=== PATIENT | female | born 1990 | race American Indian/Alaskan Native ===

== ENCOUNTER 2019-06-05 14:54 | Emergency (ER) | payer OTHER ==
--- NOTE | 2019-06-05 15:21 | Cat Scan Report ---
NONENHANCED CT SCAN OF THE BRAIN: INDICATION: neuro deficits <6hrs or sx present upon awakening. TECHNIQUE: Routine CT head without contrast. Sagittal and coronal reformatted images were obtained. A ll CT scans at this location are performed using CT dose reduction for ALARA by means of automated ex posure control. COMPARISON: None. FINDINGS: BRAIN / INTRACRANIAL CONTENTS: Hemorrhage:No intracranial hemorrhage; no subarachnoid hemorrhage Stroke mimics: No subdural or epidural hematoma or space taking lesion Acute/subacute territorial infarction: Murray-white matter interface: Normal Wedge shaped parenchymal low density area: Not present Cortical sulci: Not effaced Lacunar infarctions: Not present Vasculopathy: No evidence Calcified embolus: Not present Chronic lesions:None White matter: Normal Craniocervical junction:No significant abnormality Orbits:No significant abnormality Paranasal sinuses/mastoids:No significant abnormality Additional findings: None IMPRESSION: No hemorrhage or hemorrhagic lesion No stroke mimics No acute parenchymal lesion in the brain This exam was performed as part of a code stroke protocol. The exam was completed on 06/05/2019 2:09 PM. The exam was reviewed at 2:[address] Vitale was notified at 2:16 PM. Signer Name: Ced Hopper MD Signed: 06/05/2019 3:17 PM Workstation Name: [email or web address]
[2019-06-05] MEDS ORDERED: LIDOCAINE (4%) 40 MG/ML TOPICAL SOLN 50 ML BOTTLE TP ONE (15:31)
[2019-06-05] MEDS ORDERED: diphenhydrAMINE 50 MG/ML VIAL IV ONE (15:31)
[2019-06-05] MEDS ORDERED: MAGNESIUM SULFATE 2 GM/50 ML BAG IV ONE (15:31)
[2019-06-05] MEDS ORDERED: METOCLOPRAMIDE 10 MG/2 ML INJ IV ONE (15:31)
[2019-06-05] MEDS ORDERED: fentaNYL 100 MCG/2 ML INJ IV ONE (15:31)
[2019-06-05] MEDS ORDERED: SODIUM CHLORIDE 0.9% 500 ML 500 ML IV ONE (15:31)
[2019-06-05] MEDS ORDERED: methylPREDNISolone Sod Succinate 125 MG/2 ML INJ IV ONE (15:32)
--- NOTE | 2019-06-05 15:33 | Emergency Department Report ---
ED Neuro Deficit HPI - General Chief Complaint: Neuro Symptoms/Deficit Stated Complaint: POSS STROKE Time Seen by Provider: 06/05/19 15:14 Source: patient, RN notes reviewed Mode of arrival: Ambulatory Limitations: No Limitations - History of Present Illness Initial Comments: Primary care : [place] [facility] Past medical history: Patient reports DVT, pulmonary embolism, upper extremity DVT The patient states she is not currently on systemic anticoagulation and reports that she had a total abdominal hysterectomy. She further reports that in the [place] [facility], it was felt that her pulmonary emboli/DVT or related to "hormonal" disorders, and she indicates that her physicians did not feel it was necessary to maintain her on anticoagulation after her hysterectomy. She also reports a history of chronic headaches, and bipolar The patient presents to the ER with a complaint of headache. The headache is midline and occipital. The headache was present upon waking up at 9:30 this morning. The headache is not described as sudden or thunderclap in nature. The headache did not which maximal intensity within an hour. The headache is waxing and waning, and reached peak intensity at approximately 12:00 PM today. She also reports that at or around 12:00 PM, she developed dizziness, described as unsteady gait, binocular blurry vision, now resolved, numbness over her bilateral lips, and left arm and leg "pins and needles." She reports a history of chronic headaches, but states this is dissimilar from prior headaches. She also believes that she is drooling. -: Gradual Location: left face, left arm, left leg, other Presenting Symptoms: Present: Weak/Paralyzed One Side, Blurred/Loss of Vision, Facial Droop/Numbness History of same: No Place: home Quality: other Improves With: other Worsens With: other On Anticoagulants: No Context: other - Related Data Home Medications: Home Medications Medication Instructions Recorded Confirmed Last Taken Ciclesonide [Alvesco 160MCG/PUFF] 1 puff IH BID 06/05/19 06/05/19 Unknown Citalopram Hydrobromide [Celexa] 40 mg PO DAILY 06/05/19 06/05/19 Unknown OLANzapine [ZyPREXA] 5 mg PO QHS 06/05/19 06/05/19 Unknown Pioglitazone [Actos] 15 mg PO QDAY 06/05/19 06/05/19 Unknown Prazosin HCl 4 mg PO QHS 06/05/19 06/05/19 Unknown hydrOXYzine PAMOATE [Vistaril] 25 mg PO Q6HR PRN 06/05/19 06/05/19 Unknown lamoTRIgine [LaMICtal] 100 mg PO QHS 06/05/19 06/05/19 Unknown metFORMIN [Glucophage] 500 mg PO BID 06/05/19 06/05/19 Unknown Allergies/Adverse Reactions: Allergies Allergy/AdvReac Type Severity Reaction Status Date / Time aspirin Allergy Unknown Verified 06/05/19 15:57 erythromycin base Allergy Unknown Verified 06/05/19 15:57 Sulfa (Sulfonamide Allergy Unknown Verified 06/05/19 15:57 Antibiotics) ED Review of Systems ROS: Stated complaint: POSS STROKE Other details as noted in HPI Constitutional: malaise, weakness Eyes: vision change Respiratory: denies: wheezing Cardiovascular: denies: syncope Gastrointestinal: denies: vomiting Neurological: headache, weakness, numbness Psychiatric: anxiety Hematological/Lymphatic: denies: easy bleeding ED Past Medical Hx - Past Medical History Previous Medical History?: Yes Hx Pulmonary Embolism: Yes - Surgical History Past Surgical History?: No - Medications Home Medications: Home Medications Medication Instructions Recorded Confirmed Last Taken Type Ciclesonide [Alvesco 160MCG/PUFF] 1 puff IH BID 06/05/19 06/05/19 Unknown History Citalopram Hydrobromide [Celexa] 40 mg PO DAILY 06/05/19 06/05/19 Unknown History OLANzapine [ZyPREXA] 5 mg PO QHS 06/05/19 06/05/19 Unknown History Pioglitazone [Actos] 15 mg PO QDAY 06/05/19 06/05/19 Unknown History Prazosin HCl 4 mg PO QHS 06/05/19 06/05/19 Unknown History hydrOXYzine PAMOATE [Vistaril] 25 mg PO Q6HR PRN 06/05/19 06/05/19 Unknown History lamoTRIgine [LaMICtal] 100 mg PO QHS 06/05/19 06/05/19 Unknown History metFORMIN [Glucophage] 500 mg PO BID 06/05/19 06/05/19 Unknown History ED Neuro Physical Exam - General Limitations: No Limitations General appearance: alert, anxious, obese Suspected Stroke: No - Head Head exam: Present: atraumatic, normocephalic - Eye Eye exam: Present: normal appearance, PERRL, EOMI, other (visual acuity intact to finger counting, color perception, reading at a close distance). Absent: nystagmus - ENT ENT exam: Present: normal exam, normal orophraynx, mucous membranes moist, normal external ear exam - Neck Neck exam: Present: normal inspection, full ROM. Absent: tenderness, meningismu s - Respiratory Respiratory exam: Present: normal lung sounds bilaterally. Absent: respiratory distress - Cardiovascular Cardiovascular Exam: Present: regular rate, normal rhythm, normal heart sounds. Absent: bradycardia, tachycardia, irregular rhythm, systolic murmur, diastolic murmur, rubs, gallop - GI/Abdominal GI/Abdominal exam: Present: soft. Absent: distended, tenderness, guarding, rebound, rigid - Extremities Exam Extremities exam: Present: normal inspection, full ROM, other (2+ pulses noted in the bilateral upper, lower extremities. There is no long bone tenderness. Musculoskeletal compartments are soft. The pelvis is stable.). Absent: tenderness, pedal edema, joint swelling, calf tenderness - Back Exam Back exam: Present: normal inspection, full ROM. Absent: tenderness, CVA ten derness (R), CVA tenderness (L), paraspinal tenderness, vertebral tenderness - Neurological Exam Neurological exam: Present: alert, oriented X3 - NIHSS Assessment Interval: Baseline 1a. Level of Consciousness: alert/keenly responsive 1b. LOC Questions: answers both correctly 1c. LOC Commands: performs tasks correctly 2. Best Gaze: normal 3. Visual: no visual loss 4. Facial Palsy: normal symmetrical movement 5b. Motor Arm Right: no drift 5a. Motor Arm Left: no drift (the patient's left arm does not drift, she holds it up for 10 seconds, however, it is noted to be tremulous.) 6a. Motor Leg Left: no drift (the left leg does not drift, there is strenuous is, however, she holds it up equally with a left upper extremity) 6b. Motor Leg Right: no drift 7. Limb Ataxia: present 1 limb (patient had difficulty with left upper extremity. However, this is intermittent, and she is found to be coordinating her left upper extremities without difficulty on other examinations) 8. Sensory: mild/moderate sensory loss (reports pins and needles to left arm and left leg) 9. Best Language: no aphasia 10. Dysarthria: normal 11. Extinction/Inattention: no abnormality Total Score: 2 Stroke Severity: Minor Stroke - Psychiatric Psychiatric exam: Present: anxious - Skin Skin exam: Present: warm, dry, intact, normal color. Absent: rash ED Course Vital Signs 06/05/19 06/05/19 06/05/19 15:26 16:00 17:00 Temperature 98.1 F Pulse Rate 85 94 H 90 Respiratory 19 17 23 Rate Blood Pressure 120/84 116/68 116/73 O2 Sat by Pulse 99 100 97 Oximetry - Reevaluation(s) Reevaluation #1: 06/05/19 16:36 Differential diagnosis, including not limited to: Complex migraine, stroke, TIA, partial seizure, conversion disorder Assessment and plan: 28-year-old female with multiple neurologic complaints, inconsistent examination, woke up with a headache, with minor NIH deficits. The patient does not want TPA as she is concerned about the risks of fatal bleed. She is alert and oriented at this time, clinically sober and exhibits decision-making capacity. In addition, both myself and consulting stroke neurology, Dr. Angel, had a very low suspicion for true ischemic event. Patient is noted by myself and nursing staff to have intermittent drooling and and swallowing without difficulty. She was noted by consulting neurology to have held up her arm without difficulty while distracted. She will be treated for presumed complex migraine. Stroke neurology does recommend inpatient admission for dedicated MR acquisition and further screening studies. CTA head and neck were obtained, however, we think this is unlikely to be a large vessel occlusion. We obtained a CTA head and neck as the patient complains of left-sided neck pain, nontraumatic, and is endorsing new onsets reported neurologic deficits. Reevaluation #2: 06/05/19 16:40 As per nursing documentation: 1545: Upon transporting patient to CT, pt noted to be intermittently drooling out of left side of mouth but wiping to clean herself. 1610: While administering medications and conversating with patient and , patient noted to not have any drooling while speaking. Reevaluation #3: 06/05/19 16:54 CT angiogram head and neck negative for acute disease Reevaluation #4: 06/05/19 18:[address] Alexander Back - Lab Data Result diagrams: 06/05/19 15:25 06/05/19 15:25 Lab Results 06/05/19 06/05/19 06/05/19 Range/Units 15:25 15:25 15:25 WBC 6.5 (4.5-11.0) K/mm3 RBC 5.05 H (3.65-5.03) M/mm3 Hgb 14.3 (10.1-14.3) gm/dl Hct 42.2 (30.3-42.9) % MCV 84 (79-97) fl MCH 28 (28-32) pg MCHC 34 (30-34) % RDW 14.4 (13.2-15.2) % Plt Count 238 (140-440) K/mm3 Lymph % (Auto) 35.5 H (13.4-35.0) % Calloway % (Auto) 5.7 (0.0-7.3) % Eos % (Auto) 2.1 (0.0-4.3) % Baso % (Auto) 0.8 (0.0-1.8) % Lymph # 2.3 (1.2-5.4) K/mm3 Calloway # 0.4 (0.0-0.8) K/mm3 Eos # 0.1 (0.0-0.4) K/mm3 Baso # 0.1 (0.0-0.1) K/mm3 Seg Neutrophils % 55.9 (40.0-70.0) % Seg Neutrophils # 3.6 (1.8-7.7) K/mm3 PT 12.9 (12.2-14.9) Sec. INR 0.98 (0.87-1.13) APTT 28.9 (24.2-36.6) Sec. Thrombin Time (15.1-19.6) Sec. Sodium 140 (137-145) mmol/L Potassium 3.7 (3.6-5.0) mmol/L Chloride 102.9 (98-107) mmol/L Carbon Dioxide 26 (22-30) mmol/L Anion Gap 15 mmol/L BUN 10 (7-17) mg/dL Creatinine 0.7 (0.7-1.2) mg/dL Estimated GFR > 60 ml/min BUN/Creatinine Ratio 14 % Glucose 105 H (65-100) mg/dL Calcium 9.6 (8.4-10.2) mg/dL Troponin T < 0.010 (0.00-0.029) ng/mL 06/05/19 Range/Units 15:25 WBC (4.5-11.0) K/mm3 RBC (3.65-5.03) M/mm3 Hgb (10.1-14.3) gm/dl Hct (30.3-42.9) % MCV (79-97) fl MCH (28-32) pg MCHC (30-34) % RDW (13.2-15.2) % Plt Count (140-440) K/mm3 Lymph % (Auto) (13.4-35.0) % Calloway % (Auto) (0.0-7.3) % Eos % (Auto) (0.0-4.3) % Baso % (Auto) (0.0-1.8) % Lymph # (1.2-5.4) K/mm3 Calloway # (0.0-0.8) K/mm3 Eos # (0.0-0.4) K/mm3 Baso # (0.0-0.1) K/mm3 Seg Neutrophils % (40.0-70.0) % Seg Neutrophils # (1.8-7.7) K/mm3 PT (12.2-14.9) Sec. INR (0.87-1.13) APTT (24.2-36.6) Sec. Thrombin Time 16.7 (15.1-19.6) Sec. Sodium (137-145) mmol/L Potassium (3.6-5.0) mmol/L Chloride (98-107) mmol/L Carbon Dioxide (22-30) mmol/L Anion Gap mmol/L BUN (7-17) mg/dL Creatinine (0.7-1.2) mg/dL Estimated GFR ml/min BUN/Creatinine Ratio % Glucose (65-100) mg/dL Calcium (8.4-10.2) mg/dL Troponin T (0.00-0.029) ng/mL - EKG Data -: EKG Interpreted by Co EKG shows normal: sinus rhythm, axis, intervals, QRS complexes, ST-T waves When compared to previous EKG there are: previous EKG unavailable - Radiology Data Radiology results: report reviewed, image reviewed Noncontrast CT scan of the brain is negative for acute disease - Core Measures Measure Exclusions: not indicated - Thrombolytic Inclusion/Exclusion Thrombolytic Exclusion Criteria: Symptom Onset > 3 Hours (patient states she woke up with headache) Thrombolytic Contraindications: Rapidily Improving s/s Critical care attestation.: If time is entered above; I have spent that time in minutes in the direct care of this critically ill patient, excluding procedure time. ED Disposition Clinical Impression: TIA (transient ischemic attack) Disposition: DC/TX- [facility] IP Is pt being admited?: No Condition: Good
[2019-06-05 15:34] LABS: Basophils # (Auto) 0.1 K/mm3 (0.0-0.1); Basophils % (Auto) 0.8 % (0.0-1.8); Eosinophils # (Auto) 0.1 K/mm3 (0.0-0.4); Eosinophils % (Auto) 2.1 % (0.0-4.3); Hematocrit 42.2 % (30.3-42.9); Hemoglobin 14.3 gm/dl (10.1-14.3); Lymphocytes # (Auto) 2.3 K/mm3 (1.2-5.4); Lymphocytes % (Auto) 35.5 % (13.4-35.0); Mean Corpuscular HGB Conc 34 % (30-34); Mean Corpuscular Volume 84 fl (79-97); Monocytes # (Auto) 0.4 K/mm3 (0.0-0.8); Monocytes % (Auto) 5.7 % (0.0-7.3); Platelet Count 238 K/mm3 (140-440); Red Blood Count 5.05 M/mm3 (3.65-5.03); Red Cell Distribution Width 14.4 % (13.2-15.2)
[2019-06-05 15:48] LABS: INR 0.98 (0.87-1.13)
[2019-06-05 15:49] LABS: Partial Thromboplastin Time 28.9 Sec. (24.2-36.6)
[2019-06-05 16:12] LABS: BUN/Creatinine Ratio 14; Blood Urea Nitrogen 10 mg/dL (7-17); Calcium 9.6 mg/dL (8.4-10.2); Hemolysis Index 6
--- NOTE | 2019-06-05 16:38 | Cat Scan Report ---
CTA neck with and without contrast CLINICAL HISTORY: Cerebrovascular accident, left neck pain. Technique: Multiple contiguous postcontrast axial CT images of the neck were obtained at 1.25 mm inte rvals. 3 plane MIP reconstructions were produced. Precontrast localizing images were also performed. All CT scans at this location are performed using the CT dose reduction for ALARA by means of automat ed exposure control. FINDINGS: There is no significant stenosis involving the carotid arteries by NASCET criteria. Segment s of the proximal right vertebral artery is obscured by the dense contrast within the adjacent venous structures appeared however, the visualized segments demonstrate appropriate caliber without focal n arrowing. Furthermore, the vessel luis including the carotid and vertebral arteries demonstrate fair ly smooth contours without clear CT evidence of dissection. There is some beam hardening resulting fr om the patient's body habitus. The arch of vessels are unremarkable. There is a 1.8 cm heterogeneous lesion within the inferior left lobe of thyroid gland which is nonspe cific. IMPRESSION: There is no significant stenosis involving the carotid or vertebral arteries by NASCET criteria. There is a 1.8 cm heterogeneous lesion within the inferior left lobe of the thyroid gland as detailed above. Follow-up thyroid ultrasound would be recommended to further characterize this finding. Signer Name: Clemente Jane MD Signed: 06/05/2019 4:33 PM Workstation Name: [id number]
--- NOTE | 2019-06-05 16:42 | Cat Scan Report ---
CTA head with and without IV contrast. CLINICAL HISTORY: Cerebrovascular accident. Technique: Multiple contiguous postcontrast CT images of the head were obtained at 1.25 mm intervals. 3 plane MIP reconstructions were obtained. Precontrast localizing images were also performed. CT scan s at this location are performed using the CT dose reduction for Zipzoom by means of automated exposure control. FINDINGS: The intracranial vessels appear to demonstrate appropriate caliber without significant foca l stenosis by NASCET criteria. The vertebral basilar system is unremarkable. There is no clear CTA ev idence of intracranial aneurysm on these 1.25 mm images of the dural venous sinuses opacify with cont rast. IMPRESSION: There is no CTA evidence of significant stenosis involving the intracranial vessels. Signer Name: Clemente Jane MD Signed: 06/05/2019 4:37 PM Workstation Name: [id number]
--- NOTE | 2019-06-05 17:04 | Emergency Department Report ---
HPI - General Chief Complaint: Neuro Symptoms/Deficit Time Seen by Provider: 06/05/19 15:14 - HPI HPI: [facility] Date of Service: 06/05/2019 14:58:52 Metrics: Last Known Well: 06/05/2019 12:00:00 [employer] Notification Time: 06/05/2019 14:58:15 Arrival Time: 06/05/2019 14:54:00 Stamp Time: 06/05/2019 14:58:52 Time First Login Attempt: 06/05/2019 14:58:00 Video Start Time: 06/05/2019 15:08:00 Symptoms: Headache and left sided numbness NIHSS Start Assessment Time: 06/05/2019 15:10:00 Patient is not a candidate for tPA. Patient was not deemed candidate for tPA thrombolytics because of D/t non disabling paresthesia and patient's preference for medical work up instead.. Video End Time: 06/05/2019 15:18:00 Patient is a 28 year old Female. Patient was brought by private transportation with symptoms of Headache and left sided numbness Patient with 20 year hx of migraine presents with intense posteior headache since she woke up with tingling of her left face and arm since 12 pm. She felt the left arm is heavy and that the tingling is somewhat intense. She has hx of dvt/pe and has been off a/c for past two years since hysterectomy. She states today she had some blurred vision and fell as well but not having vision complaints at this time. CT head showed no acute hemorrhage or acute core infarct. CT head was reviewed. ED Past Medical Hx - Past Medical History Previous Medical History?: Yes Hx Pulmonary Embolism: Yes - Surgical History Past Surgical History?: No - Social History Smoking Status: Never Smoker Substance Use Type: None - Medications Home Medications: Home Medications Medication Instructions Recorded Confirmed Last Taken Type Ciclesonide [Alvesco 160MCG/PUFF] 1 puff IH BID 06/05/19 06/05/19 Unknown History Citalopram Hydrobromide [Celexa] 40 mg PO DAILY 06/05/19 06/05/19 Unknown History OLANzapine [ZyPREXA] 5 mg PO QHS 06/05/19 06/05/19 Unknown History Pioglitazone [Actos] 15 mg PO QDAY 06/05/19 06/05/19 Unknown History Prazosin HCl 4 mg PO QHS 06/05/19 06/05/19 Unknown History hydrOXYzine PAMOATE [Vistaril] 25 mg PO Q6HR PRN 06/05/19 06/05/19 Unknown History lamoTRIgine [LaMICtal] 100 mg PO QHS 06/05/19 06/05/19 Unknown History metFORMIN [Glucophage] 500 mg PO BID 06/05/19 06/05/19 Unknown History ED Review of Systems ROS: Stated complaint: POSS STROKE Other details as noted in HPI Constitutional: malaise, weakness Eyes: vision change Respiratory: denies: wheezing Cardiovascular: denies: syncope Gastrointestinal: denies: vomiting Neurological: headache, weakness, numbness Psychiatric: anxiety Hematological/Lymphatic: denies: easy bleeding Physical Exam - Physical Exam Vital Signs: Vital Signs 06/05/19 15:26 Temperature 98.1 F Pulse Rate 85 Respiratory 19 Rate Blood Pressure 120/84 O2 Sat by Pulse 99 Oximetry Physical Exam: Examination: 1A: Level of Consciousness - Alert; keenly responsive + 0 1B: Ask Month and Age - Both Questions Right + 0 1C: Blink Eyes & Squeeze Hands - Performs Both Tasks + 0 2: Test Horizontal Extraocular Movements - Normal + 0 3: Test Visual Britton - No Visual Loss + 0 4: Test Facial Palsy (Use Grimace if Obtunded) - Normal symmetry + 0 5A: Test Left Arm Motor Drift - No Drift for 10 Seconds + 0 5B: Test Right Arm Motor Drift - No Drift for 10 Seconds + 0 6A: Test Left Leg Motor Drift - No Drift for 5 Seconds + 0 6B: Test Right Leg Motor Drift - No Drift for 5 Seconds + 0 7: Test Limb Ataxia (FNF/Heel-Sheppard) - No Ataxia + 0 8: Test Sensation - Mild-Moderate Loss: Less Sharp/More Dull + 1 9: Test Language/Aphasia - Normal; No aphasia + 0 10: Test Dysarthria - Normal + 0 11: Test Extinction/Inattention - No abnormality + 0 NIHSS Score: 1 ED Course Vital Signs 06/05/19 15:26 Temperature 98.1 F Pulse Rate 85 Respiratory 19 Rate Blood Pressure 120/84 O2 Sat by Pulse 99 Oximetry ED Medical Decision Making - Lab Data Result diagrams: 06/05/19 15:25 06/05/19 15:25 - Medical Decision Making mpression: RO Acute Ischemic Stroke Suspect Migraine Comments: NOT likely [facility] candidate as exam is not correlating with LVO clincially and CTA negative for lvo per radiology report. Patient is not a candidate for tPA. Patient was not deemed candidate for tPA thrombolytics because of D/t non disabling paresthesia and patient's preference for medical work up instead.. Video End Time: 06/05/2019 15:18:00 CT head showed no acute hemorrhage or acute core infarct. CT head was reviewed. Advanced imaging was reviewed, No Indication of Large Vessel Occlusive Thrombus. Radiologist was not called back for review of advanced imaging because Reviewed radiology report, No Indication of Large Vessel Occlusive Thrombus ER Physician notified of the decision on thrombolytics management on 06/05/2019 15:38:36 Our recommendations are outlined below. Recommendations: Activate Stroke Protocol Admission/Order Set Stroke/Telemetry Floor Neuro Checks Bedside Swallow Eval DVT Prophylaxis IV Fluids, Normal Saline Head of Bed Below 30 Degrees Euglycemia and Avoid Hyperthermia (PRN Acetaminophen) Antiplatelet Therapy Recommended treat headache with prn meds. Recommended Scan: MRI Head Echocardiogram - Transthoracic Echocardiogram Disposition: Can consider inpatient neurology Follow up if needed Sign Out: Discussed with Emergency Department Provider Patient was informed the Neurology Consult would happen via TeleHealth consult by way of interactive audio and video telecommunications and consented to receiv ing care in this manner. Due to the immediate potential for life-threatening deterioration due to u nderlying acute neurologic illness, I spent 35 minutes providing critical care. This time includes time for face to face visit via telemedicine, review of medical records, imaging studies and discussion of findings with providers, the patient and/or family. Dr Trang Angel [facility] Critical care attestation.: If time is entered above; I have spent that time in minutes in the direct care of this critically ill patient, excluding procedure time. ED Disposition Clinical Impression: TIA (transient ischemic attack) Disposition: DC-09 OP ADMIT IP TO THIS HOSP Is pt being admited?: Yes Condition: Stable
[2019-06-05] MEDS ORDERED: ACETAMINOPHEN 500 MG TAB PO ONE (18:26)
[2019-06-05] MEDS ORDERED: CLOPIDOGREL 75 MG TAB PO ONE (18:26)
[2019-06-05 20:19] VITALS: BP 119/75
== END 2019-06-05 20:45 | disposition short-term general hospital (02) ==
LOC: ED 14:54
DX: G45.9 Transient cerebral ischemic attack, unspecified (principal)
CPT/HCPCS: 36415; 70450; 70496; 70498; 80048; 84484; 85025; 85610; 85670; 85730; 93005; 93010; 96365; 96375; 99285; J1200; J2765; J2930; J3010; J3475; J7040; Q9967